=== PATIENT | male | born 1980 | race Caucasian/White ===

== ENCOUNTER 2020-08-06 14:53 | Emergency (ER) | payer MEDICAID ==
[~2020-08-06] VITALS: Ht 175.3 cm; Wt 120.7 kg
[2020-08-06 14:59] VITALS: BP 141/93
--- NOTE | 2020-08-06 15:04 | NUR ---
Pt ambulated to ER bed 12 with a steady gait.
[2020-08-06] MEDS ORDERED: TETRACAINE 1% 2 ML AMP INJ ONE (15:20)
[2020-08-06] MEDS ORDERED: FLUORESCEIN OPTH STRIP 1 MG OP ONE (15:20)
--- NOTE | 2020-08-06 15:20 | NUR ---
40 Y/O MALE FROM HOME C/O LEFT EYE DISCOMFORT WITH SWELLING AND DRAINAGE. PT STATES HE SCRATCHED EYE WITH PLASTIC AROUND 1400 YESTERDAY. STATES DIFFICULTY WITH VISION. NOTICABLE SWELLING TO EYE. 9/10 SCRATCHING PAIN. VSS
[2020-08-06] MEDS ORDERED: TETRACAINE HCL/PF 0.5% OPTH 4 ML BTL OP ONE (15:25)
--- NOTE | 2020-08-06 15:51 | NUR ---
JETHRO [place] at pt bedside for further evaluation.
[2020-08-06] MEDS ORDERED: IBUP-2213 PO (16:26)
[2020-08-06] MEDS ORDERED: [UNRECOGNIZED DRUG - CODE] OP (16:26)
[2020-08-06 16:48] VITALS: BP 136/88
--- NOTE | 2020-08-06 16:48 | NUR ---
Patient discharged with v/s stable. Written and verbal after care instructions given and explained. Patient alert, oriented and verbalized understanding of instructions. Ambulatory with steady gait. All questions addressed prior to discharge. ID band removed. Patient advised to follow up with PMD. Rx of GENTAMICIN SULFATE AND IBUPROFEN given. Patient educated on indication of medication including possible reaction and side effects. Opportunity to ask questions provided and answered.
== END 2020-08-06 16:46 | disposition home or self-care (01) ==
LOC: MED 14:53
DX: S05.02XA Injury of conjunctiva and corneal abrasion without foreign body, left eye, initial encounter (principal); X58.XXXA Exposure to other specified factors, initial encounter; Y93.89 Activity, other specified; Y92.89 Other specified places as the place of occurrence of the external cause; Y99.8 Other external cause status
CPT/HCPCS: 99283